=== PATIENT | male | born 1980 | race African-American/Black ===

== ENCOUNTER 2019-06-09 22:57 | Inpatient (IN) ==
[2019-06-10] MEDS ORDERED: ONDANSETRON 4 MG/2 ML VIAL IV STA (00:02)
[2019-06-10] MEDS ORDERED: ASPIRIN 325 MG TABLET PO STA (00:02)
[2019-06-10] MEDS ORDERED: NITROGLYCERIN 2% OINT 1 INCH/GM PACK TOP STA (00:02)
[2019-06-10] MEDS ORDERED: MORPHINE 4 MG/1 ML VIAL IV STA (00:02)
[2019-06-10] MEDS ORDERED: hydrALAZINE 20 MG/1 ML VIAL IV STA (00:02)
[2019-06-10] MEDS ORDERED: ALUM/MAG/SIMETH/LIDO VISC 1:1 30 ML BOTTLE PO STA (00:02)
[2019-06-10 00:11] LABS: Basophils # 0.1 10*3/uL (0.0-0.2); Basophils % 0.4 % (0.0-0.8); Eosinophils # 0.2 10*3/uL (0.0-0.87); Eosinophils % 1.9 % (0.00-10.9); Hematocrit 41.4 VOL% (42.0-52.0); Hemoglobin 13.2 GM/DL (14.0-18.0); Immature Granulocytes % 0.4 %; Immature Granulocytes Absolute 0.05 #; Lymphocytes # 2.1 10*3/uL (1.4-4.0); Lymphocytes % 17.1 % (21.2-54.2); Mean Corpuscular HGB Conc 31.9 GM/DL (32-36); Mean Corpuscular Volume 82.6 FL (87-102); Mean Platelet Volume 9.1 FL (9.6-12.0); Monocytes % 5.8 % (1.7-12.7); Neutrophils % 74.4 % (38.7-73.9); Platelet Count 426 T/CUMM (130-400); Red Blood Count 5.01 MC/CUMM (3.8-5.5); Red Cell Distribution Width 14.5 % (9.3-17.3); White Blood Count 12.4 T/CUMM (4-12)
[2019-06-10 00:20] LABS: INR 0.9; PT Patient Result 10.3 SECS
[2019-06-10 00:27] LABS: Alanine Aminotransferase 24 U/L (16-61); Albumin 3.7 G/DL (3.4-5.0); Alkaline Phosphatase 123 U/L (45-117); Aspartate Amino Transferase 21 U/L (0-37); Blood Urea Nitrogen 9 MG/DL (7-18); Calcium 9.2 MG/DL (8.5-10.1); Glucose 112 MG/DL (74-106); Osmolality,Calculated 280.3 MOS/KG (273-304); Total Protein 8.2 G/DL (6.4-8.3); Troponin I < 0.015 NG/ML (0.00-0.045)
[2019-06-10] MEDS ORDERED: METOPROLOL TARTRATE 5 MG/5 ML VIAL IV STA (01:20)
[2019-06-10] MEDS ORDERED: METOPROLOL TARTRATE 5 MG/5 ML VIAL IV ONE (01:21)
[2019-06-10 01:37] LABS: Apearance,Urine CLEAR (Clear); Bacteria,Urine Occasional /HPF (Few); Bilirubin,Urine Negative (Negative); Blood, Urine Small mg/dL (Negative); Glucose,Urine (UA) Negative (Negative); Ketones,Urine Negative (Negative); Mucus,Urine Occasional /LPF (Occasional); Nitrite,Urine Negative (Negative); Protein,Urine Negative; RBC,Urine 4 /HPF (0-4); Urine Color Straw (Yellow); Urine Specific Gravity 1.009 (1.001-1.035); Urine Urobilinogen < 2.0 EU/DL (0.2-1.0); WBC,Urine <1 /HPF (0-6)
[2019-06-10] MEDS ORDERED: niCARdipine 25 MG/10 ML VIAL IV ONE (01:56)
[2019-06-10] MEDS ORDERED: niCARdipine INJ 25 MG in SODIUM CHLORIDE 0.9% 240 ML IV PRN ×2 (01:56→02:37)
[2019-06-10 02:13] LABS: Barbiturates Screen,Urine Negative (Negative); Benzodiazepines Screen,Urine Negative (Negative); Cannabinoid Screen,Urine Negative (Negative); Opiate Screen,Urine Negative (Negative); Phencyclidine Screen,Urine Negative (Negative)
[2019-06-10] MEDS ORDERED: diphenhydrAMINE CAP 25 MG CAPSULE PO PRN (02:37)
[2019-06-10] MEDS ORDERED: ONDANSETRON 4 MG/2 ML VIAL IV PRN (02:37)
[2019-06-10] MEDS ORDERED: ACETAMINOPHEN 325 MG TABLET PO PRN (02:37)
[2019-06-10] MEDS: niCARdipine INJ 50 MG in SODIUM CHLORIDE 0.9% 480 ML IV PRN ×4 (04:44→21:44)
[2019-06-10] MEDS: POTASSIUM CHLORIDE RIDER 10 MEQ in PREMIX 1 EACH IV PRN ×2 (05:13→07:15)
[2019-06-10 06:25] LABS: Risk Ratio 6.06; Thyroid Stimulating Hormone 2.24 uIU/ml (0.358-3.74); VLDL CHOLESTEROL 17.8 MG/DL
[2019-06-10] MEDS ORDERED: CARVEDILOL 12.5 MG TABLET PO SCH (09:00)
[2019-06-10] MEDS ORDERED: NICOTINE 21 MG/24 HR PATCH TRANSDERM PRN (09:00)
[2019-06-10] MEDS: amLODIPine 10 MG TABLET PO SCH (09:16)
[2019-06-10] MEDS: POTASSIUM CHLORIDE 20 MEQ TABLET PO SCH ×3 (09:16→16:24)
[2019-06-10] MEDS: ENOXAPARIN 40 MG/0.4 ML SYRINGE SUBCUT SCH (09:16)
[2019-06-10] MEDS: ASPIRIN EC 81 MG TABLET PO SCH (09:16)
[2019-06-10] MEDS: PANTOPRAZOLE 40 MG TABLET PO SCH (09:16)
[2019-06-10] MEDS: MORPHINE 4 MG/1 ML VIAL IV PRN ×2 (10:16→20:34)
[2019-06-10] MEDS ORDERED: CARVEDILOL 12.5 MG TABLET PO ONE (10:32)
[2019-06-10] MEDS: LOSARTAN 50 MG TABLET PO SCH (11:45)
[2019-06-10] MEDS: CARVEDILOL 25 MG TABLET PO SCH (20:32)
[2019-06-10] MEDS ORDERED: KETOROLAC 30 MG/1 ML VIAL IV ONE (23:47)
[2019-06-11] MEDS: niCARdipine INJ 50 MG in SODIUM CHLORIDE 0.9% 480 ML IV PRN (03:56)
[2019-06-11 05:14] LABS: Osmolality,Calculated 279.4 MOS/KG (273-304)
[2019-06-11] MEDS ORDERED: cloNIDine 0.1 MG TABLET PO PRN (08:48)
[2019-06-11] MEDS: POTASSIUM CHLORIDE 20 MEQ TABLET PO SCH (09:03)
[2019-06-11] MEDS: amLODIPine 10 MG TABLET PO SCH (09:04)
[2019-06-11] MEDS: ENOXAPARIN 40 MG/0.4 ML SYRINGE SUBCUT SCH (09:04)
[2019-06-11] MEDS: FUROSEMIDE 40 MG TABLET PO SCH (09:04)
[2019-06-11] MEDS: CARVEDILOL 25 MG TABLET PO SCH ×2 (09:04→20:55)
[2019-06-11] MEDS: ASPIRIN EC 81 MG TABLET PO SCH (09:04)
[2019-06-11] MEDS: PANTOPRAZOLE 40 MG TABLET PO SCH (09:04)
[2019-06-11] MEDS: LOSARTAN 50 MG TABLET PO SCH (09:04)
[2019-06-11] MEDS ORDERED: CLINDAMYCIN INJ 600 MG in PREMIX 1 EACH IV ONE (10:56)
[2019-06-11] MEDS ORDERED: MAGNESIUM HYDROXIDE SUSP 30 ML UDCUP PO PRN (10:58)
[2019-06-11] MEDS: CLINDAMYCIN 300 MG CAPSULE PO SCH ×2 (17:05→23:53)
[2019-06-12 05:38] LABS: Osmolality,Calculated 277.5 MOS/KG (273-304)
[2019-06-12] MEDS: CLINDAMYCIN 300 MG CAPSULE PO SCH ×2 (06:21→11:27)
[2019-06-12] MEDS: LOSARTAN 50 MG TABLET PO SCH (08:51)
[2019-06-12] MEDS: amLODIPine 10 MG TABLET PO SCH (08:51)
[2019-06-12] MEDS: FUROSEMIDE 40 MG TABLET PO SCH (08:51)
[2019-06-12] MEDS: PANTOPRAZOLE 40 MG TABLET PO SCH (08:51)
[2019-06-12] MEDS: CARVEDILOL 25 MG TABLET PO SCH (08:51)
[2019-06-12] MEDS: POTASSIUM CHLORIDE 20 MEQ TABLET PO SCH (08:51)
[2019-06-12] MEDS: ENOXAPARIN 40 MG/0.4 ML SYRINGE SUBCUT SCH (08:52)
[2019-06-12] MEDS: ASPIRIN EC 81 MG TABLET PO SCH (08:55)
[2019-06-12] MEDS: POTASSIUM CHLORIDE RIDER 10 MEQ in PREMIX 1 EACH IV PRN ×2 (08:56→11:28)
[2019-06-12 11:31] VITALS: BP 148/86
[2019-06-12] MEDS ORDERED: POTASSIUM CHLORIDE 20 MEQ TABLET PO ONE (11:35)
[2019-06-12] MEDS ORDERED: FUROSEMIDE 20 MG TABLET PO SCH (12:07)
== END 2019-06-12 16:15 | disposition home or self-care (01) | DRG 305 ==
LOC: N.ED 22:57 → N.EDINP 06-10 02:37 → SUATTDRO 06-10 02:37 → N.CC 06-10 04:07 → N.2E 06-11 13:51
PROVIDERS: ADMIT Internal Medicine Geriatric Medicine; ATTEND Internal Medicine